=== PATIENT | male | born 1970 | race Caucasian/White ===

== ENCOUNTER 2019-05-12 09:00 | Outpatient (CLI) | payer OTHER ==
--- NOTE | 2019-05-12 10:25 | ULT ---
EXAM: US Hepatic Doppler PROVIDED CLINICAL HISTORY: Abdominal pain COMPARISON: None FINDINGS: Evaluation is limited by patient body habitus. Visualized portions of the abdominal aorta appear unremarkable. The IVC and pancreas are largely obsc ured. The liver demonstrates prominent increased echogenicity compatible with fatty infiltration. No eviden ce for mass or intrahepatic biliary ductal dilatation. The common duct appears nondilated. The gallbladder demonstrates no stones, wall thickening or pericholecystic fluid. The spleen is not enlarged and demonstrates no focal abnormality. Color Doppler and spectral analysis of the hepatic portal, hepatic venous, hepatic arterial, splenic venous and splenic arterial waveforms demonstrates normal direction of flow. The right hepatic vein is obscured. IMPRESSION: 1. Fatty infiltration of the liver. 2. Normal hepatic Doppler with limitations as described.
== END 2019-05-12 09:01 | disposition home or self-care (01) ==
LOC: SCSULT 09:00
PROVIDERS: ATTEND Internal Medicine Gastroenterology
DX: R10.13 Epigastric pain (principal); R94.5 Abnormal results of liver function studies; R07.9 Chest pain, unspecified; R10.33 Periumbilical pain; R19.4 Change in bowel habit; K58.9 Irritable bowel syndrome, unspecified; R13.10 Dysphagia, unspecified; K76.0 Fatty (change of) liver, not elsewhere classified
CPT/HCPCS: 36415; 76705; 80053; 82103; 82104; 83516; 83540; 83550; 85610; 86706; 86708; 86803; 87340